=== PATIENT | male | born 2000 | race Asian ===

== ENCOUNTER 2021-12-24 08:49 | Emergency (ER) | payer BC ==
[~2021-12-24] VITALS: Ht 182.9 cm; Wt 80.0 kg
[2021-12-24] MEDS ORDERED: METOCLOPRAMIDE HCL 10MG/2ML VIAL IV STA (09:51)
[2021-12-24] MEDS ORDERED: FAMOTIDINE 20MG/2ML VIAL IV STA (09:51)
[2021-12-24] MEDS ORDERED: SODIUM CHLORIDE 0.9% 1,000 ML IV ONE (10:00)
[2021-12-24 10:10] LABS: BASOPHILS % 0.1 % (0.0-2.0); EOSINOPHILS % 0.8 % (0.0-5.0); HEMATOCRIT. 47.1 % (42.0-52.0); HEMOGLOBIN. 15.9 g/dL (14.0-18.0); LYMPHOCYTES % 7.1 % (20.0-50.0); MEAN CORPUSCULAR HEMOGLOBIN 32.3 pg (28.0-32.0); MEAN CORPUSCULAR VOLUME 95.7 fL (80.0-94.0); MEAN PLATELET VOLUME 10.1 fl (7.4-10.4); MONOCYTES % 6.9 % (2.0-8.0); NEUTROPHILS % 85.1 % (40.0-76.0); PLATELET 158 x1000/uL (130-400); RED BLOOD CELL COUNT 4.92 mill/uL (4.7-6.1); RED CELL DISTRIBUTION WIDTH 12.9 % (11.6-14.6)
[2021-12-24 10:12] LABS: CHLORIDE 105 mEq/L (98-107)
[2021-12-24 10:42] VITALS: BP 109/68
[2021-12-24] MEDS ORDERED: ONDA4TAB11 PO (11:57)
== END 2021-12-24 12:21 | disposition home or self-care (01) ==
LOC: ER 08:49
DX: R10.84 Generalized abdominal pain (principal); R19.7 Diarrhea, unspecified
CPT/HCPCS: 36415; 80053; 83690; 85025; 96361; 96374; 96375; 99284; J2765; J7030